=== PATIENT | female | born 1985 | race Caucasian/White ===

== ENCOUNTER 2018-06-05 01:53 | Emergency (ER) | payer OTHER, BC ==
[2018-06-05] MEDS: ACETAMINOPHEN 500 MG TAB PO (03:16)
[2018-06-05 03:22] LABS: ADD MAN DIFF? NO
[2018-06-05 03:23] LABS: BASOPHIL # 0.1 10^3/ul (0.0-0.1); BASOPHILS % 0.4 % (0.0-2.0); EOSINOPHILS # 0.4 10^3/ul (0.0-0.5); HEMATOCRIT 37.7 % (37.0-47.0); HEMOGLOBIN 12.2 g/dl (12.0-16.0); LYMPHOCYTES # 3.9 10^3/ul (0.8-2.9); LYMPHOCYTES % 31.3 % (15.0-51.0); MEAN CORPUSCULAR HEMOGLOBIN 29.8 pg (29.0-33.0); MEAN CORPUSCULAR HGB CONC 32.4 g/dl (32.0-37.0); MEAN PLATELET VOLUME 10.4 fl (7.4-10.4); MONOCYTE # 0.6 10^3/ul (0.3-0.9); MONOCYTES % 4.7 % (0.0-11.0); NEUTROPHIL # 7.4 10^3/ul (1.6-7.5); NEUTROPHILS % 60.2 % (39.0-77.0); PLATELET COUNT 343 10^3/UL (140-415); RED CELL DISTRIBUTION WIDTH 12.8 % (11.5-14.5)
[2018-06-05 03:23] LABS: WHITE BLOOD COUNT 12.3 10^3/ul (4.8-10.8)
[2018-06-05 03:28] LABS: ADD UMIC YES; UR ASCORBIC ACID NEGATIVE (NEGATIVE); UR BACTERIA FEW /HPF (NONE SEEN); UR BILIRUBIN (Dip) NEGATIVE (NEGATIVE); UR BLOOD (Dip) 1+ mg/dL (NEGATIVE); UR CLARITY SLIGHTLY CLOUDY (CLEAR); UR COLOR YELLOW (YELLOW); UR GLUCOSE (Dip) NEGATIVE (NEGATIVE); UR KETONES (Dip) NEGATIVE (NEGATIVE); UR LEUKOCYTE ESTERASE (Dip) NEGATIVE Leu/ul (NEGATIVE); UR NITRITE (Dip) NEGATIVE (NEGATIVE); UR RBC 2 /HPF (0-5); UR SPECIFIC GRAVITY (Dip) 1.024 (1.003-1.030); UR SQUAMOUS EPITHELIAL CELL FEW /HPF (FEW); UR TOTAL PROTEIN (Dip) NEGATIVE (NEGATIVE); UR UROBILINOGEN (Dip) NEGATIVE (NEGATIVE); UR WBC 0 /HPF (0-5)
[2018-06-05 03:40] LABS: ALANINE AMINOTRANSFERASE 14 IU/L (13-69); ALBUMIN 4.7 g/dl (3.3-4.9); ALBUMIN/GLOBULIN RATIO 1.23; ALKALINE PHOSPHATASE 121 IU/L (42-121); AMYLASE 85 U/L (11-123); ANION GAP 11 (5-13); ASPARTATE AMINO TRANSFERASE 18 IU/L (15-46); BILIRUBIN,INDIRECT 0.2 mg/dl (0-1.1); BILIRUBIN,TOTAL 0.2 mg/dl (0.2-1.3); BLOOD UREA NITROGEN 13 mg/dl (7-20); CALCIUM 10.2 mg/dl (8.4-10.2); CARBON DIOXIDE 26 mmol/L (21-31); CHLORIDE 103 mmol/L (97-110); CREATININE 0.63 mg/dl (0.44-1.00); Estimated GFR > 60 mL/min (>60); GLUCOSE 117 mg/dl (70-220); LIPASE 39 U/L (23-300); POTASSIUM 4.1 mmol/L (3.5-5.1); SODIUM 140 mmol/L (135-144); TOTAL PROTEIN 8.5 g/dl (6.1-8.1)
== END 2018-06-05 05:05 | disposition home or self-care (01) ==
LOC: FTE 01:53
DX: O20.0 Threatened abortion (principal); O26.891 Other specified pregnancy related conditions, first trimester; R10.2 Pelvic and perineal pain; Z3A.01 Less than 8 weeks gestation of pregnancy
CPT/HCPCS: 76801; 76817; 80053; 81001; 82150; 83690; 84702; 85025; 86900; 86901; 87086; 99284-25

== ENCOUNTER 2018-10-29 01:00 | Outpatient (CLI) | payer OTHER ==
[2018-10-29 04:19] LABS: RUPTURE FETAL MEMBRANES NEGATIVE (NEGATIVE)
[2018-10-29 04:42] LABS: ADD UMIC NO; UR ASCORBIC ACID NEGATIVE (NEGATIVE); UR BILIRUBIN (Dip) NEGATIVE (NEGATIVE); UR BLOOD (Dip) NEGATIVE (NEGATIVE); UR CLARITY CLEAR (CLEAR); UR COLOR STRAW (YELLOW); UR GLUCOSE (Dip) NEGATIVE (NEGATIVE); UR KETONES (Dip) NEGATIVE (NEGATIVE); UR LEUKOCYTE ESTERASE (Dip) NEGATIVE Leu/ul (NEGATIVE); UR NITRITE (Dip) NEGATIVE (NEGATIVE); UR SPECIFIC GRAVITY (Dip) 1.008 (1.003-1.030); UR TOTAL PROTEIN (Dip) NEGATIVE (NEGATIVE); UR UROBILINOGEN (Dip) NEGATIVE (NEGATIVE)
== END 2018-10-29 06:30 | disposition home or self-care (01) ==
LOC: OBT 01:00 → L-D 01:00 → OBT 06:30
DX: O26.892 Other specified pregnancy related conditions, second trimester (principal); M54.9 Dorsalgia, unspecified; R25.2 Cramp and spasm; O34.219 Maternal care for unspecified type scar from previous cesarean delivery; Z3A.26 26 weeks gestation of pregnancy
CPT/HCPCS: 76815; 76817; 76818; 81003; 84112

== ENCOUNTER 2019-01-04 06:25 | Outpatient (CLI) | payer OTHER ==
[2019-01-04 08:40] LABS: ADD MAN DIFF? NO
[2019-01-04 08:56] LABS: WHITE BLOOD COUNT 8.8 10^3/ul (4.8-10.8)
[2019-01-04 08:56] LABS: BASOPHILS % 0.5 % (0.0-2.0); EOSINOPHILS # 0.1 10^3/ul (0.0-0.5); EOSINOPHILS % 1.6 % (0.0-7.0); HEMATOCRIT 31.3 % (37.0-47.0); HEMOGLOBIN 10.1 g/dl (12.0-16.0); LYMPHOCYTES # 2.3 10^3/ul (0.8-2.9); LYMPHOCYTES % 26.5 % (15.0-51.0); MEAN CORPUSCULAR HEMOGLOBIN 30.3 pg (29.0-33.0); MEAN CORPUSCULAR HGB CONC 32.3 g/dl (32.0-37.0); MEAN PLATELET VOLUME 10.9 fl (7.4-10.4); MONOCYTE # 0.6 10^3/ul (0.3-0.9); MONOCYTES % 6.3 % (0.0-11.0); NEUTROPHIL # 5.7 10^3/ul (1.6-7.5); NEUTROPHILS % 64.6 % (39.0-77.0); PLATELET COUNT 276 10^3/UL (140-415); RED BLOOD COUNT 3.33 10^6/ul (4.20-5.40); RED CELL DISTRIBUTION WIDTH 14.2 % (11.5-14.5)
[2019-01-04 09:04] LABS: ALANINE AMINOTRANSFERASE 19 IU/L (13-69); ALBUMIN 3.5 g/dl (3.3-4.9); ALBUMIN/GLOBULIN RATIO 1.12; ALKALINE PHOSPHATASE 114 IU/L (42-121); ANION GAP 10 (5-13); ASPARTATE AMINO TRANSFERASE 23 IU/L (15-46); BILIRUBIN,INDIRECT 0.4 mg/dl (0-1.1); BILIRUBIN,TOTAL 0.4 mg/dl (0.2-1.3); BLOOD UREA NITROGEN 7 mg/dl (7-20); CALCIUM 9.3 mg/dl (8.4-10.2); CARBON DIOXIDE 22 mmol/L (21-31); CHLORIDE 103 mmol/L (97-110); CREATININE 0.49 mg/dl (0.44-1.00); Estimated GFR > 60 mL/min (>60); GLUCOSE 104 mg/dl (70-220); POTASSIUM 3.9 mmol/L (3.5-5.1); SODIUM 135 mmol/L (135-144); TOTAL PROTEIN 6.6 g/dl (6.1-8.1); URIC ACID 4.2 mg/dl (3.1-7.9)
[2019-01-04 09:06] LABS: COLLECTION PERIOD 24 hrs
[2019-01-04 09:36] LABS: INR 0.97
[2019-01-04 09:37] LABS: PARTIAL THROMBOPLASTIN TIME 27.1 Sec (23.0-35.0)
[2019-01-04 09:47] LABS: VOLUME 1300 mls
[2019-01-04 09:48] LABS: COLLECTION PERIOD 24 hrs; SCRET 0.49 mg/dl (0.44-1.00); VOLUME 1300 ml/24hrs
[2019-01-04 10:22] LABS: CREATININE CLEARANCE 173.4 mls/min (84.0-162.0)
== END 2019-01-04 11:14 | disposition home or self-care (01) ==
LOC: OBT 06:25 → 2NE 06:25 → L-D 06:25 → OBT 11:14
DX: O10.913 Unspecified pre-existing hypertension complicating pregnancy, third trimester (principal); Z3A.35 35 weeks gestation of pregnancy
CPT/HCPCS: 76818; 80053; 80076; 82575; 84156; 84560; 85025; 85384; 85610; 85730

== ENCOUNTER 2019-01-14 07:56 | Outpatient (CLI) | payer OTHER ==
[2019-01-14 08:29] LABS: COLLECTION PERIOD 24 hrs
[2019-01-14 09:28] LABS: VOLUME 2400 mls
[2019-01-14 09:29] LABS: COLLECTION PERIOD 24 hrs; VOLUME 2400 ml/24hrs
[2019-01-14 09:30] LABS: CREATININE,URINE RANDOM 40.72 mg/dl (20-320)
[2019-01-14 10:49] LABS: CREATININE 0.51 mg/dl (0.44-1.00)
[2019-01-14 10:54] LABS: CREATININE CLEARANCE 133.1 mls/min (84.0-162.0); SCRET 0.51 mg/dl (0.44-1.00)
== END 2019-01-14 10:40 | disposition home or self-care (01) ==
LOC: OBT 07:56 → L-D 07:56 → OBT 10:40
DX: O12.13 Gestational proteinuria, third trimester (principal); Z3A.37 37 weeks gestation of pregnancy
CPT/HCPCS: 76818; 82565; 82575; 84156

== ENCOUNTER 2019-01-17 04:13 | Inpatient (IN) | payer OTHER ==
[2019-01-17 05:18] LABS: ADD MAN DIFF? NO
[2019-01-17 05:20] LABS: BASOPHILS % 0.4 % (0.0-2.0); EOSINOPHILS # 0.1 10^3/ul (0.0-0.5); EOSINOPHILS % 1.4 % (0.0-7.0); HEMATOCRIT 32.9 % (37.0-47.0); HEMOGLOBIN 10.9 g/dl (12.0-16.0); LYMPHOCYTES # 2.5 10^3/ul (0.8-2.9); LYMPHOCYTES % 26.4 % (15.0-51.0); MEAN CORPUSCULAR HEMOGLOBIN 31.1 pg (29.0-33.0); MEAN CORPUSCULAR HGB CONC 33.1 g/dl (32.0-37.0); MONOCYTE # 0.6 10^3/ul (0.3-0.9); MONOCYTES % 5.9 % (0.0-11.0); NEUTROPHIL # 6.2 10^3/ul (1.6-7.5); NEUTROPHILS % 65.6 % (39.0-77.0); PLATELET COUNT 265 10^3/UL (140-415); RED CELL DISTRIBUTION WIDTH 14.8 % (11.5-14.5)
[2019-01-17 05:20] LABS: WHITE BLOOD COUNT 9.5 10^3/ul (4.8-10.8)
[2019-01-17] MEDS ORDERED: METHYLERGONOVINE 0.2 MG INJ IM ×2 (05:30→08:30)
[2019-01-17] MEDS ORDERED: MISOPROSTOL 200 MCG TAB PR ×2 (05:30→08:30)
[2019-01-17] MEDS ORDERED: OXYTOCIN 30 UNITS/LR 500 ML IV ×3 (05:30→08:30)
[2019-01-17] MEDS ORDERED: CARBOPROST 250 MCG INJ IM ×2 (05:30→08:30)
[2019-01-17 05:35] LABS: INR 0.91; PROTIME 12.4 Sec (11.9-14.9)
[2019-01-17 05:36] LABS: PARTIAL THROMBOPLASTIN TIME 27.9 Sec (23.0-35.0)
[2019-01-17] MEDS: LACTATED RINGER'S 1,000 ML IV ×3 (06:07→19:19)
[2019-01-17] MEDS ORDERED: morphine SULFATE/PF (10 MG/10 ML) INJ (06:28)
[2019-01-17] MEDS ORDERED: OXYTOCIN 10 UNIT INJ (06:28)
[2019-01-17] MEDS ORDERED: ONDANSETRON 4 MG INJ (06:28)
[2019-01-17] MEDS ORDERED: BUPIVACAINE 0.5% (SDV) 30 ML INJ (06:31)
[2019-01-17] MEDS ORDERED: PHENYLephrine 10 MG INJ (06:57)
[2019-01-17] MEDS ORDERED: DIPHENHYDRAMINE 50 MG INJ IV ×3 (07:30→11:30)
[2019-01-17] MEDS ORDERED: NALOXONE (0.4 MG/ML) INJ IV ×2 (07:30→11:30)
[2019-01-17] MEDS ORDERED: ONDANSETRON 4 MG INJ IV ×3 (07:30→11:30)
[2019-01-17] MEDS ORDERED: KETOROLAC 30 MG INJ IV ×3 (07:30→11:30)
[2019-01-17] MEDS ORDERED: morphine 2 MG INJ IV (07:30)
[2019-01-17] MEDS: OXYTOCIN 30 UNITS/LR 500 ML IV ×3 (08:19→14:32)
[2019-01-17] MEDS ORDERED: DIPHENHYDRAMINE 50 MG INJ (08:25)
[2019-01-17] MEDS: CEFAZOLIN 2 GM/50 ML (PMX) 50 ML IVPB ×5 (08:30→22:33)
[2019-01-17] MEDS ORDERED: LANOLIN HPA 1 PKT TOP (08:30)
[2019-01-17] MEDS ORDERED: METHYLERGONOVINE 0.2 MG TAB PO (08:30)
[2019-01-17] MEDS ORDERED: NA PHOSPHATE/BIPHOS 133 ML ENEMA PR (08:30)
[2019-01-17] MEDS ORDERED: HYDROCODONE/APAP (5/325) TAB PO (08:30)
[2019-01-17] MEDS: DIPHENHYDRAMINE 50 MG INJ IV (09:05)
[2019-01-17] MEDS: KETOROLAC 30 MG INJ IV ×3 (09:34→20:38)
[2019-01-17] MEDS ORDERED: METOCLOPRAMIDE 10 MG INJ IV (11:30)
[2019-01-17] MEDS ORDERED: ALBUTEROL 0.083% (NEB) 2.5 MG/3 ML AMP HHN (11:30)
[2019-01-17] MEDS ORDERED: FENTAnyl 50 MCG/ML VIAL IV ×2 (11:30)
[2019-01-17] MEDS ORDERED: HYDROmorphONE 0.5 MG/0.5 ML SYG IV ×2 (11:30)
[2019-01-17] MEDS ORDERED: HYDROmorphONE 1 MG/5 ML IV SYRINGE IV ×2 (11:30)
[2019-01-17] MEDS: LABETALOL 100 MG TAB PO ×2 (11:39→21:00)
[2019-01-17] MEDS: SENNA/DOCUSATE NA (8.6MG/50MG) TAB PO ×2 (11:40→20:46)
[2019-01-17 15:38] LABS: RAPID PLASMA REAGIN NONREACTIVE (NR)
[2019-01-18] MEDS: LACTATED RINGER'S 1,000 ML IV ×2 (04:20→05:01)
[2019-01-18] MEDS: KETOROLAC 30 MG INJ IV (04:28)
[2019-01-18] MEDS: CEFAZOLIN 2 GM/50 ML (PMX) 50 ML IVPB (06:26)
[2019-01-18 06:55] LABS: ADD MAN DIFF? NO
[2019-01-18 06:59] LABS: BASOPHIL # 0.1 10^3/ul (0.0-0.1); BASOPHILS % 0.6 % (0.0-2.0); EOSINOPHILS # 0.1 10^3/ul (0.0-0.5); EOSINOPHILS % 1.1 % (0.0-7.0); HEMATOCRIT 29.8 % (37.0-47.0); HEMOGLOBIN 9.7 g/dl (12.0-16.0); LYMPHOCYTES # 1.5 10^3/ul (0.8-2.9); LYMPHOCYTES % 16.1 % (15.0-51.0); MEAN CORPUSCULAR HEMOGLOBIN 30.9 pg (29.0-33.0); MEAN CORPUSCULAR HGB CONC 32.6 g/dl (32.0-37.0); MEAN CORPUSCULAR VOLUME 94.9 fl (82.0-101.0); MEAN PLATELET VOLUME 10.6 fl (7.4-10.4); MONOCYTE # 0.6 10^3/ul (0.3-0.9); MONOCYTES % 6.6 % (0.0-11.0); NEUTROPHIL # 6.8 10^3/ul (1.6-7.5); NEUTROPHILS % 75.2 % (39.0-77.0); PLATELET COUNT 220 10^3/UL (140-415); RED BLOOD COUNT 3.14 10^6/ul (4.20-5.40); RED CELL DISTRIBUTION WIDTH 14.7 % (11.5-14.5)
[2019-01-18 06:59] LABS: WHITE BLOOD COUNT 9.1 10^3/ul (4.8-10.8)
[2019-01-18] MEDS: LABETALOL 100 MG TAB PO ×2 (09:00→21:00)
[2019-01-18] MEDS: SENNA/DOCUSATE NA (8.6MG/50MG) TAB PO ×2 (09:29→21:00)
[2019-01-18] MEDS: HYDROCODONE/APAP (5/325) TAB PO ×2 (13:29→18:57)
[2019-01-18] MEDS: IBUPROFEN 800 MG TAB PO (22:19)
[2019-01-19] MEDS: IBUPROFEN 800 MG TAB PO ×3 (05:45→22:01)
[2019-01-19 09:34] LABS: ADD MAN DIFF? NO
[2019-01-19] MEDS: SENNA/DOCUSATE NA (8.6MG/50MG) TAB PO ×2 (09:41→21:07)
[2019-01-19 09:49] LABS: BASOPHIL # 0.1 10^3/ul (0.0-0.1); BASOPHILS % 0.5 % (0.0-2.0); EOSINOPHILS # 0.2 10^3/ul (0.0-0.5); EOSINOPHILS % 2.1 % (0.0-7.0); HEMATOCRIT 34.5 % (37.0-47.0); HEMOGLOBIN 10.8 g/dl (12.0-16.0); LYMPHOCYTES # 1.8 10^3/ul (0.8-2.9); LYMPHOCYTES % 17.1 % (15.0-51.0); MEAN CORPUSCULAR HGB CONC 31.3 g/dl (32.0-37.0); MEAN CORPUSCULAR VOLUME 99.1 fl (82.0-101.0); MEAN PLATELET VOLUME 11.1 fl (7.4-10.4); MONOCYTE # 0.6 10^3/ul (0.3-0.9); MONOCYTES % 6.2 % (0.0-11.0); NEUTROPHIL # 7.6 10^3/ul (1.6-7.5); NEUTROPHILS % 73.5 % (39.0-77.0); PLATELET COUNT 267 10^3/UL (140-415); RED BLOOD COUNT 3.48 10^6/ul (4.20-5.40); RED CELL DISTRIBUTION WIDTH 14.7 % (11.5-14.5)
[2019-01-19 09:49] LABS: WHITE BLOOD COUNT 10.3 10^3/ul (4.8-10.8)
[2019-01-19] MEDS: HYDROCODONE/APAP (5/325) TAB PO (17:44)
[2019-01-19] MEDS: LABETALOL 100 MG TAB PO (21:00)
[2019-01-20] MEDS: IBUPROFEN 800 MG TAB PO ×2 (05:23→14:39)
[2019-01-20] MEDS: SENNA/DOCUSATE NA (8.6MG/50MG) TAB PO (08:31)
[2019-01-20 08:40] LABS: ADD MAN DIFF? NO
[2019-01-20 08:48] LABS: WHITE BLOOD COUNT 7.9 10^3/ul (4.8-10.8)
[2019-01-20 08:48] LABS: BASOPHIL # 0.1 10^3/ul (0.0-0.1); BASOPHILS % 0.6 % (0.0-2.0); EOSINOPHILS # 0.3 10^3/ul (0.0-0.5); EOSINOPHILS % 3.2 % (0.0-7.0); HEMATOCRIT 32.9 % (37.0-47.0); HEMOGLOBIN 10.4 g/dl (12.0-16.0); LYMPHOCYTES # 1.9 10^3/ul (0.8-2.9); LYMPHOCYTES % 23.6 % (15.0-51.0); MEAN CORPUSCULAR HEMOGLOBIN 30.7 pg (29.0-33.0); MEAN CORPUSCULAR HGB CONC 31.6 g/dl (32.0-37.0); MEAN CORPUSCULAR VOLUME 97.1 fl (82.0-101.0); MONOCYTE # 0.5 10^3/ul (0.3-0.9); MONOCYTES % 6.9 % (0.0-11.0); NEUTROPHIL # 5.1 10^3/ul (1.6-7.5); NEUTROPHILS % 65.2 % (39.0-77.0); PLATELET COUNT 270 10^3/UL (140-415); RED BLOOD COUNT 3.39 10^6/ul (4.20-5.40); RED CELL DISTRIBUTION WIDTH 14.6 % (11.5-14.5)
[2019-01-20] MEDS: MEASLES,MUMPS,RUBELLA VACCINE INJ SC* (09:00)
[2019-01-20] MEDS: LABETALOL 100 MG TAB PO (09:00)
[2019-01-20] MEDS: HYDROCODONE/APAP (5/325) TAB PO (12:35)
[2019-01-20] MEDS: DIPHTH/TET/ACEL PERTUSS (ADULT) 0.5 ML VIAL IM* (14:45)
== END 2019-01-20 18:00 | disposition home or self-care (01) | DRG 784 ==
LOC: L-D 04:13 → PP1 01-19 17:43 → L-D 06:16 → PP1 10:32
PROVIDERS: Obstetrics & Gynecology
PROC: 10D00Z1 Extraction of Products of Conception, Low, Open Approach (ICD-10-PCS; principal; 2019-01-17 06:00)
PROC: 0UB70ZZ Excision of Bilateral Fallopian Tubes, Open Approach (ICD-10-PCS; 2019-01-17 06:00)
DX: O13.3 Gestational [pregnancy-induced] hypertension without significant proteinuria, third trimester (principal); Z68.42 Body mass index [BMI] 45.0-49.9, adult; O99.213 Obesity complicating pregnancy, third trimester; E66.8 Other obesity; Z3A.37 37 weeks gestation of pregnancy; Z37.0 Single live birth; O34.211 Maternal care for low transverse scar from previous cesarean delivery; Z30.2 Encounter for sterilization
CPT/HCPCS: 85025; 85610; 85730; 86592; 86850; 86900; 86901; 88302; 90715; 99464